=== PATIENT | female | born 1965 | race African-American/Black ===

== ENCOUNTER 2018-02-20 06:49 | Day surgery (SDC) | payer OTHER ==
[2018-02-20] MEDS: CEFAZOLIN 2 GM/50 ML (PMX) 50 ML IVPB (12:30)
[2018-02-20] MEDS ORDERED: SOD CHLORIDE 0.9% 1,000 ML IV (12:30)
[2018-02-20 12:54] LABS: ADD MAN DIFF? NO
[2018-02-20 12:56] LABS: BASOPHILS % 0.7 % (0.0-2.0); EOSINOPHILS # 0.1 10^3/ul (0.0-0.5); EOSINOPHILS % 2.3 % (0.0-7.0); HEMOGLOBIN 12.7 g/dl (12.0-16.0); LYMPHOCYTES # 2.6 10^3/ul (0.8-2.9); LYMPHOCYTES % 43.3 % (15.0-51.0); MEAN CORPUSCULAR HEMOGLOBIN 27.9 pg (29.0-33.0); MEAN CORPUSCULAR HGB CONC 32.6 g/dl (32.0-37.0); MEAN CORPUSCULAR VOLUME 85.5 fl (82.0-101.0); MEAN PLATELET VOLUME 10.6 fl (7.4-10.4); MONOCYTE # 0.5 10^3/ul (0.3-0.9); MONOCYTES % 7.6 % (0.0-11.0); NEUTROPHIL # 2.8 10^3/ul (1.6-7.5); NEUTROPHILS % 45.9 % (39.0-77.0); PLATELET COUNT 248 10^3/UL (140-415); RED BLOOD COUNT 4.56 10^6/ul (4.20-5.40); RED CELL DISTRIBUTION WIDTH 12.7 % (11.5-14.5)
[2018-02-20 13:14] LABS: INR 0.97
[2018-02-20 13:15] LABS: PARTIAL THROMBOPLASTIN TIME 32.6 Sec (23.0-35.0)
[2018-02-20 13:24] LABS: ALANINE AMINOTRANSFERASE 9 IU/L (13-69); ALBUMIN 4.4 g/dl (3.3-4.9); ALBUMIN/GLOBULIN RATIO 1.02; ALKALINE PHOSPHATASE 85 IU/L (42-121); ANION GAP 12 (5-13); ASPARTATE AMINO TRANSFERASE 19 IU/L (15-46); BILIRUBIN,INDIRECT 0.5 mg/dl (0-1.1); BILIRUBIN,TOTAL 0.5 mg/dl (0.2-1.3); BLOOD UREA NITROGEN 12 mg/dl (7-20); CALCIUM 9.5 mg/dl (8.4-10.2); CARBON DIOXIDE 26 mmol/L (21-31); CHLORIDE 103 mmol/L (97-110); CREATININE 0.66 mg/dl (0.44-1.00); Estimated GFR > 60 mL/min (>60); GLUCOSE 99 mg/dl (70-220); POTASSIUM 3.9 mmol/L (3.5-5.1); SODIUM 141 mmol/L (135-144); TOTAL PROTEIN 8.7 g/dl (6.1-8.1)
[2018-02-20] MEDS ORDERED: MIDAZOLAM 1 MG/ML 2 ML INJ (14:05)
[2018-02-20] MEDS ORDERED: CEFAZOLIN 1 GM INJ (15:10)
[2018-02-20] MEDS ORDERED: LIDOCAINE 100 MG SYRINGE (15:10)
[2018-02-20] MEDS ORDERED: PROPOFOL 20 ML (15:10)
[2018-02-20] MEDS ORDERED: MEPERIDINE 25 MG INJ (15:23)
[2018-02-20] MEDS ORDERED: HYDROmorphONE 1 MG/5 ML IV SYRINGE IV (15:24)
[2018-02-20] MEDS ORDERED: ONDANSETRON 4 MG INJ (15:24)
[2018-02-20] MEDS ORDERED: LABETALOL HCL 20MG INJ (15:27)
[2018-02-20] MEDS ORDERED: MEPERIDINE 25 MG INJ IV (15:30)
[2018-02-20] MEDS ORDERED: hydrALAzine 20 MG INJ IV (15:30)
[2018-02-20] MEDS ORDERED: DIPHENHYDRAMINE 50 MG INJ IV (15:30)
[2018-02-20] MEDS ORDERED: FENTAnyl 50 MCG/ML VIAL IV (15:30)
[2018-02-20] MEDS ORDERED: METOCLOPRAMIDE 10 MG INJ IV (15:30)
[2018-02-20] MEDS: LABETALOL HCL 20MG INJ IV (15:33)
[2018-02-20] MEDS: ONDANSETRON 4 MG INJ IV (15:34)
[2018-02-20] MEDS: HYDROmorphONE 1 MG/5 ML IV SYRINGE IV ×3 (15:34→15:46)
[2018-02-20] MEDS: HYDROCODONE/APAP (7.5/325) TAB PO (15:51)
== END 2018-02-20 16:47 | disposition home or self-care (01) ==
LOC: SDS 06:49
DX: N60.12 Diffuse cystic mastopathy of left breast (principal); I10 Essential (primary) hypertension; E78.5 Hyperlipidemia, unspecified; E66.01 Morbid (severe) obesity due to excess calories; Z68.38 Body mass index [BMI] 38.0-38.9, adult
CPT/HCPCS: 19120; 80053; 84703; 85025; 85610; 85730; 88307